=== PATIENT | female | born 1980 | race African-American/Black ===

== ENCOUNTER 2016-08-03 18:06 | Emergency (ER) | payer SELFPAY ==
[~2016-08-03] VITALS: Ht 185.4 cm; Wt 74.8 kg
[~2016-08-03 18:06] MED LIST: CIPROFLOXACIN500 M2 ORAL; IBUPROFEN600 MG ORAL; POLYTRIM OP SOL10 ML OPHTHALM
[2016-08-03] MEDS ORDERED: NKM (18:30)
[2016-08-03] MEDS ORDERED: Metoclopramide 10mg/2ml Inj IVP ONE (18:45)
[2016-08-03] MEDS ORDERED: DiphenhydrAMINE 50mg/ml Inj IVP ONE (18:45)
[2016-08-03 18:57] VITALS: BP 176/100
[2016-08-03 19:09] LABS: BASOPHILS % (AUTO) 1.6 % (0.0-2.0); EOSINOPHILS % (AUTO) 2.5 % (0.0-3.0); LYMPHOCYTES % (AUTO) 36.6 % (20.0-45.0); MEAN CORPUSCULAR HEMOGLOBIN 25.2 PG (27.0-31.0); MEAN CORPUSCULAR HGB CONC 30.8 G/DL (32.0-36.0); MEAN CORPUSCULAR VOLUME 82 FL (80-99); MEAN PLATELET VOLUME 8.6 FL (6.5-10.1); MONOCYTES % (AUTO) 8.8 % (1.0-10.0); NEUTROPHILS % (AUTO) 50.5 % (45.0-75.0); PLATELET COUNT 235 K/UL (150-450); RED BLOOD COUNT 4.28 M/UL (4.20-5.40); WHITE BLOOD COUNT 5.2 K/UL (4.8-10.8)
[2016-08-03 19:10] LABS: APPEARANCE,URINE CLOUDY; KETONES,URINE NEGATIVE (NEGATIVE); LEUKOCYTE ESTERASE ,URINE 2+ (NEGATIVE); NITRITE,URINE POSITIVE (NEGATIVE); PH,URINE 6 (4.5-8.0); PROTEIN,URINE NEGATIVE (NEGATIVE); UROBILINOGEN,URINE NORMAL MG/DL (0.0-1.0)
[2016-08-03 19:18] LABS: RBC,URINE 0-2 /HPF (0 - 2)
[2016-08-03 19:19] LABS: BACTERIA,URINE MANY /HPF; SQUAMOUS EPITHELIAL CELL,UR MODERATE /LPF (NONE/OCC)
[2016-08-03 19:27] LABS: ALANINE AMINOTRANSFERASE 65 U/L (3-33); ALBUMIN/GLOBULIN RATIO 1.5 (1.0-2.7); ANION GAP 14 (5-15); ASPARTATE AMINO TRANSFERASE 85 U/L (5-40); CALCIUM 8.4 mg/dL (8.6-10.2); CARBON DIOXIDE 25 mEQ/L (20-30); CHLORIDE 100 mEQ/L (98-107); CREATININE 0.8 mg/dL (0.5-0.9); GLOMERULAR FILTRATION RATE > 60 mL/min (>60); HEMOLYSIS 5; LIPASE 27 U/L (< 60); POTASSIUM 3.3 mEQ/L (3.4-4.9); SODIUM 139 mEQ/L (135-145); TOTAL PROTEIN 6.5 g/dL (6.6-8.7)
[2016-08-03] MEDS ORDERED: KEFLEX500 MG ORAL (19:43)
[2016-08-03] MEDS ORDERED: IBUPROFEN600 MG ORAL (19:43)
[2016-08-03 19:57] VITALS: BP 152/95
[2016-08-03 19:58] VITALS: BP 152/95
--- NOTE | 2016-08-03 20:34 | Emergency Room Report ---
History of Present Illness General Chief Complaint: Abdominal Pain Source: Patient Present Illness HPI 35-year-old female presents ED complaining of lower abdominal pain times one week. Pain is cramping, 7/10, suprapubic, nonradiating. Patient is also complaining of a headache, localized across forehead, 5/10, throbbing, nonradiating. Denies fevers or chills. Denies flank pain. Notes some nausea and vomiting. No other aggravating or relieving factors. Denies any other associated symptoms Allergies: Coded Allergies: No Known Allergies (Unverified , 06/19/14) Patient History Past Medical History: HTN Past Surgical History: none Pertinent Family History: none Social History: Denies: alcohol use, drug use, smoking Last Menstrual Period: 07/22/16 Now: No Immunizations: UTD Reviewed Nursing Documentation: PMH: Agreed, PSxH: Agreed Nursing Documentation-PMH Hx Hypertension: Yes Review of Systems All Other Systems: negative except mentioned in HPI Physical Exam Vital Signs Date Time Temp Pulse Resp B/P Pulse Ox O2 Delivery O2 Flow Rate FiO2 08/03/16 18:26 97.2 77 14 162/101 99 Room Air Sp02 EP Interpretation: reviewed, normal General Appearance: no apparent distress, alert, GCS 15, non-toxic Head: normocephalic Eyes: bilateral eye PERRL, bilateral eye normal inspection ENT: normal ENT inspection Neck: normal inspection Respiratory: normal inspection Cardiovascular #1: normal inspection Gastrointestinal: normal bowel sounds, soft, non-distended, no guarding, no rebound, tenderness - suprapubic Rectal: deferred Genitourinary: no CVA tenderness Musculoskeletal: normal inspection Neurologic: alert, oriented x3, responsive, motor strength/tone normal, sensory intact, speech normal Psychiatric: normal inspection Skin: normal inspection Lymphatic: normal inspection Medical Decision Making Diagnostic Impression: Primary Impression: Headache Qualified Codes: R51 - Headache Additional Impression: UTI (urinary tract infection) Qualified Codes: N39.0 - Urinary tract infection, site not specified ER Course Hospital Course 35-year-old female presents to ED complaining of headaches, suprapubic pain. Nausea. afebrile Differential diagnoses include: tension headache, migraine, dehydration, intracranial bleed Clinical course Patient placed on stretcher. After initial history and physical I ordered labs , IV fluids, Reglan and Benadryl. Labs reviewed- electrolytes okay, no leukocytosis, hemoglobin/hematocrit stable , ua grossly positive Upon reassessment patient states pain has improved. Patient feels better wishes to go home. i. I feel this is a highly complex case requiring extensive working including EKG/Rhythm strip, Xray/CT/US, Blood/urine lab work, repeat exams while in ED, and administration of strong opiates/narcotics for pain control, admission to hospital or close patient follow up. Diagnosis - headache, UTI stable and discharged to home with Rx Keflex, zofran. f/up with PMD. return to ED if symptoms recur/worsen. Labs Test 08/03/16 18:45 White Blood Count 5.2 K/UL (4.8-10.8) Red Blood Count 4.28 M/UL (4.20-5.40) Hemoglobin 10.8 G/DL (12.0-16.0) Hematocrit 35.0 % (37.0-47.0) Mean Corpuscular Volume 82 FL (80-99) Mean Corpuscular Hemoglobin 25.2 PG (27.0-31.0) Mean Corpuscular Hemoglobin Concent 30.8 G/DL (32.0-36.0) Red Cell Distribution Width 16.0 % (11.6-14.8) Platelet Count 235 K/UL (150-450) Mean Platelet Volume 8.6 FL (6.5-10.1) Neutrophils (%) (Auto) 50.5 % (45.0-75.0) Lymphocytes (%) (Auto) 36.6 % (20.0-45.0) Monocytes (%) (Auto) 8.8 % (1.0-10.0) Eosinophils (%) (Auto) 2.5 % (0.0-3.0) Basophils (%) (Auto) 1.6 % (0.0-2.0) Urine Color Yellow Urine Appearance Cloudy Urine pH 6 (4.5-8.0) Urine Specific [place] 1.010 (1.005-1.035) Urine Protein Negative (NEGATIVE) Urine Glucose (UA) Negative (NEGATIVE) Urine Ketones Negative (NEGATIVE) Urine Occult Blood 1+ (NEGATIVE) Urine Nitrite Positive (NEGATIVE) Urine Bilirubin Negative (NEGATIVE) Urine Urobilinogen Normal MG/DL (0.0-1.0) Urine Leukocyte Esterase 2+ (NEGATIVE) Urine RBC 0-2 /HPF (0 - 2) Urine WBC 2-4 /HPF (0 - 2) Urine Squamous Epithelial Cells Moderate /LPF (NONE/OCC) Urine Bacteria Many /HPF (NONE) Urine HCG, Qualitative Negative Sodium Level 139 mEQ/L (135-145) Potassium Level 3.3 mEQ/L (3.4-4.9) Chloride Level 100 mEQ/L (98-107) Carbon Dioxide Level 25 mEQ/L (20-30) Anion Gap 14 (5-15) Blood Urea Nitrogen 9 mg/dL (7-23) Creatinine 0.8 mg/dL (0.5-0.9) Estimat Glomerular Filtration Rate > 60 mL/min (>60) Glucose Level 72 mg/dL (74-106) Calcium Level 8.4 mg/dL (8.6-10.2) Total Bilirubin 0.3 mg/dL (0.0-1.2) Aspartate Amino Transf (AST/SGOT) 85 U/L (5-40) Alanine Aminotransferase (ALT/SGPT) 65 U/L (3-33) Alkaline Phosphatase 100 U/L (35-104) Total Protein 6.5 g/dL (6.6-8.7) Albumin 3.9 g/dL (3.5-5.2) Globulin 2.6 g/dL Albumin/Globulin Ratio 1.5 (1.0-2.7) Lipase 27 U/L (< 60) Last Vital Signs Date Time Temp Pulse Resp B/P Pulse Ox O2 Delivery O2 Flow Rate FiO2 08/03/16 19:58 98.0 76 16 152/95 100 Room Air Status: improved Disposition: HOME, SELF-CARE Condition: Stable Scripts Cephalexin* (KEFLEX*) 500 Mg Capsule 500 MG ORAL Q6H, #28 CAP 0 Refills Prov: STEWART RODRIGUEZ M.D. 08/03/16 Ibuprofen* (MOTRIN*) 600 Mg Tablet 600 MG ORAL Q8H Y for For Pain, #30 TAB 0 Refills Prov: STEWART RODRIGUEZ M.D. 08/03/16 Patient Instructions: Urinary Tract Infection STEWART RODRIGUEZ M.D. Aug 03, 2016 20:34
[2016-08-07] MEDS ORDERED: IBUPROFEN600 MG ORAL (08:25)
[2016-08-07] MEDS ORDERED: KEFLEX500 MG ORAL (08:25)
== END 2016-08-03 20:12 | disposition home or self-care (01) ==
LOC: EMR 19:00
DX: R51 Headache (principal); N39.0 Urinary tract infection, site not specified; R11.0 Nausea; I10 Essential (primary) hypertension
CPT/HCPCS: 36415; 80053; 81003; 81025; 83690; 85025; 87086; 87181; 96374; 96375; 99284; J1200; J2765; J7040

== ENCOUNTER 2016-08-28 07:41 | Emergency (ER) | payer SELFPAY ==
[~2016-08-28] VITALS: Ht 182.9 cm; Wt 74.8 kg
[~2016-08-28 07:41] MED LIST changes: +KEFLEX500 MG ORAL; +NKM
[2016-08-28] MEDS ORDERED: AMOXICILLIN500 MG ORAL (08:17)
[2016-08-28] MEDS ORDERED: IBUPROFEN600 MG ORAL (08:17)
[2016-08-28 08:23] VITALS: BP 153/89
--- NOTE | 2016-08-28 08:42 | Emergency Room Report ---
History of Present Illness General Chief Complaint: Sore Throat Source: Patient Present Illness HPI 35-year-old female presents ED complaining of sore throat x3 days. States pain with swallowing, 6/10, aching, nonradiating. No other aggravating or relieving factors. Denies cough. Denies fevers or chills. Denies ear ache. Denies sick contacts or recent travel. Denies any other associated symptoms Allergies: Coded Allergies: No Known Allergies (Unverified , 06/19/14) Patient History Past Medical History: HTN Past Surgical History: none Pertinent Family History: none Social History: Denies: alcohol use, drug use, smoking Last Menstrual Period: this month Now: No Immunizations: UTD Reviewed Nursing Documentation: PMH: Agreed, PSxH: Agreed Nursing Documentation-PMH Past Medical History: No History, Except For Hx Hypertension: Yes Review of Systems All Other Systems: negative except mentioned in HPI Physical Exam Vital Signs Date Time Temp Pulse Resp B/P Pulse Ox O2 Delivery O2 Flow Rate FiO2 08/28/16 07:59 97.5 90 20 158/107 98 Room Air Sp02 EP Interpretation: reviewed, normal General Appearance: no apparent distress, alert, GCS 15, non-toxic Head: normocephalic Eyes: bilateral eye PERRL, bilateral eye normal inspection ENT: hearing grossly normal, no angioedema, normal voice, TMs + canals normal, pharyngeal erythema, tonsillar exudate Neck: full range of motion, supple/symm/no masses Respiratory: chest non-tender, lungs clear, normal breath sounds, speaking full sentences Gastrointestinal: normal inspection Rectal: deferred Genitourinary: no CVA tenderness Musculoskeletal: normal inspection Neurologic: alert, oriented x3, responsive, motor strength/tone normal, sensory intact, speech normal Psychiatric: normal inspection Skin: normal inspection Lymphatic: normal inspection Medical Decision Making Diagnostic Impression: Primary Impression: Pharyngitis Qualified Codes: J02.9 - Acute pharyngitis, unspecified ER Course Hospital Course 35-year-old male presents to ED complaining of sore throat Differential diagnoses include: URI, pharyngitis, otitis media Clinical course Patient placed on stretcher. After initial history, physical exam reveals a young male in no acute distress. Bilateral TM unremarkable. There is pharyngeal erythema w/ tonsillar exudates. No lymphadenopathy. Clinical findings consistent with pharyngitis. Reassurance given Diagnosis - pharyngitis Stable and discharged home with prescriptions for Motrin, amoxicillin. Instructed to followup with PMD. return to ED if symptoms recur or worsen Last Vital Signs Date Time Temp Pulse Resp B/P Pulse Ox O2 Delivery O2 Flow Rate FiO2 08/28/16 08:23 62 16 153/89 98 Room Air 08/28/16 08:23 98.2 Status: improved Disposition: HOME, SELF-CARE Condition: Stable Scripts Ibuprofen* (MOTRIN*) 600 Mg Tablet 600 MG ORAL Q8H Y for For Pain, #30 TAB 0 Refills Prov: STEWART RODRIGUEZ M.D. 08/28/16 Amoxicillin* (AMOXIL*) 500 Mg Capsule 500 MG ORAL THREE TIMES A DAY, #21 CAP Prov: STEWART RODRIGUEZ M.D. 08/28/16 Referrals: NOT CHOSEN DENNIS/,REFERRING (PCP) Patient Instructions: Sore Throat, [id number] STEWART RODRIGUEZ M.D. Aug 28, 2016 08:42
== END 2016-08-28 08:22 | disposition home or self-care (01) ==
LOC: EMR 08:15
DX: J02.9 Acute pharyngitis, unspecified (principal); I10 Essential (primary) hypertension
CPT/HCPCS: 99284

== ENCOUNTER 2016-11-12 10:20 | Emergency (ER) | payer MEDICAID ==
[~2016-11-12] VITALS: Ht 185.4 cm; Wt 83.0 kg
[~2016-11-12 10:20] MED LIST changes: +AMOXICILLIN500 MG ORAL
[2016-11-12 10:33] VITALS: BP 156/83
[2016-11-12] MEDS ORDERED: PRENATAL FORMU1 EAC5 PO (10:38)
[2016-11-12] MEDS ORDERED: FERROUS SULFAT325 MG ORAL (10:38)
[2016-11-12 10:41] VITALS: BP 145/81
--- NOTE | 2016-11-12 13:31 | Emergency Room Report ---
History of Present Illness General Chief Complaint: Medication Refill Source: Patient Present Illness HPI Patient 36-year-old female who is approximately 2 months who presented for medication refill. Patient stated that she needed refills of her iron as well as vitamins. Patient denied any nausea or vomiting. She any fever. She denied abdominal pain. The patient had had not had an ultrasound for this . The patient had been referred to [facility].She denies any vaginal bleeding. Allergies: Coded Allergies: No Known Allergies (Unverified , 06/19/14) Patient History Past Medical History: see triage record Reviewed Nursing Documentation: PMH: Agreed, PSxH: Agreed Nursing Documentation-PMH Hx Hypertension: Yes Review of Systems All Other Systems: negative except mentioned in HPI Physical Exam Vital Signs Date Time Temp Pulse Resp B/P Pulse Ox O2 Delivery O2 Flow Rate FiO2 11/12/16 10:23 98.2 88 20 156/83 100 Room Air General Appearance: well appearing, no apparent distress, alert, GCS 15 Head: normocephalic, atraumatic ENT: hearing grossly normal, normal voice Neck: full range of motion, supple Respiratory: no respiratory distress, speaking full sentences Gastrointestinal: normal inspection, normal bowel sounds, non tender, soft Musculoskeletal: no calf tenderness Neurologic: normal gait Psychiatric: mood/affect normal Skin: no rash Medical Decision Making Diagnostic Impression: Primary Impression: Additional Impression: Encounter for medication refill ER Course Patient presented for medication refill. The bedside ultrasound was performed to rule out ectopic . Patient was noted to have a gestational sac within the uterus. There was no free fluid in the pelvis noted. The patient's medications were refilled. She is advised followup with her primary care physician or [facility] for further refills. Last Vital Signs Date Time Temp Pulse Resp B/P Pulse Ox O2 Delivery O2 Flow Rate FiO2 11/12/16 10:41 98.2 75 20 145/81 100 Room Air Status: improved Disposition: HOME, SELF-CARE Condition: Stable Scripts Vit W-Ca,Fe,FA(<1 mg) ( Formula) 1 Each Tablet 1 EACH PO DAILY, #30 TAB Prov: Jack Dallas 11/12/16 Ferrous Sulfate* (FERROUS SULFATE*) 325 Mg Tablet 325 MG ORAL DAILY, #30 TAB 0 Refills Prov: Jack Dallas 11/12/16 Referrals: NON PHYSICIAN (PCP) Patient Instructions: Medicine Refill at the Emergency Department Jack Dallas November 12, 2016 13:31
== END 2016-11-12 10:45 | disposition home or self-care (01) ==
LOC: EMR 10:28
DX: Z76.0 Encounter for issue of repeat prescription (principal); Z34.91 Encounter for supervision of normal pregnancy, unspecified, first trimester
CPT/HCPCS: 99284

== ENCOUNTER 2017-05-04 20:19 | Emergency (ER) | payer MEDICAID, OTHER ==
[~2017-05-04] VITALS: Ht 185.4 cm; Wt 90.7 kg
[~2017-05-04 20:19] MED LIST changes: +FERROUS SULFAT325 MG ORAL; +PRENATAL FORMU1 EAC5 PO
[2017-05-04] MEDS ORDERED: ALBUTEROL SULF8.5 GM INH (21:18)
[2017-05-04] MEDS ORDERED: ZITHROMAX250 MG ORAL (21:18)
--- NOTE | 2017-05-04 21:18 | Emergency Room Report ---
History of Present Illness General Chief Complaint: Flu Like Symptoms Source: Patient Present Illness HPI Is a 36-year-old female who presents with chief complaint of flulike illness for a week and half. No fever. Has cough productive of phlegm. Also with sore throat and congestion. No urinary complaint. No nausea or vomiting. Allergies: Coded Allergies: No Known Allergies (Unverified , 06/19/14) Patient History Past Medical History: see triage record, old chart reviewed Past Surgical History: other Pertinent Family History: none Social History: Denies: smoking Last Menstrual Period: unk Now: Yes Immunizations: other Reviewed Nursing Documentation: PMH: Agreed, PSxH: Agreed Nursing Documentation-PMH Hx Hypertension: Yes Review of Systems Eye: Denies: eye pain, blurred vision ENT: Reports: nose congestion, Denies: ear pain, throat swelling Respiratory: Reports: cough, Denies: shortness of breath Cardiovascular: Denies: chest pain, palpitations Gastrointestinal: Denies: abdominal pain, diarrhea, nausea, vomiting Musculoskeletal: Denies: back pain, joint pain Skin: Denies: rash Neurological: Denies: headache, numbness Endocrine: Denies: increased thirst, increased urine Hematologic/Lymphatic: Denies: easy bruising All Other Systems: negative except mentioned in HPI Physical Exam Vital Signs Date Time Temp Pulse Resp B/P (MAP) Pulse Ox O2 Delivery O2 Flow Rate FiO2 05/04/17 20:40 98.2 90 22 156/93 99 Room Air vitals with high blood pressure Sp02 EP Interpretation: reviewed, normal General Appearance: well appearing, no apparent distress, alert Head: normocephalic, atraumatic Eyes: bilateral eye PERRL, bilateral eye EOMI ENT: hearing grossly normal, normal pharynx Neck: full range of motion, supple, no meningismus Respiratory: chest non-tender, lungs clear, normal breath sounds, other - Coughing with inspiration Cardiovascular #1: regular rate, rhythm, no murmur Gastrointestinal: normal bowel sounds, non tender, no mass, no organomegaly, no bruit, non-distended Musculoskeletal: back normal, gait/station normal, normal range of motion Psychiatric: mood/affect normal Skin: warm/dry Medical Decision Making Diagnostic Impression: Primary Impression: Upper respiratory infection, acute ER Course Patient with upper respiratory infection. Most likely viral but it has been ongoing for a week and half now, so I will put her on antibiotics. No evidence of sepsis, meningitis, or other serious bacterial infection. Last Vital Signs Date Time Temp Pulse Resp B/P (MAP) Pulse Ox O2 Delivery O2 Flow Rate FiO2 05/04/17 20:53 90 22 Room Air 05/04/17 20:40 98.2 156/93 99 Status: unchanged Disposition: HOME, SELF-CARE Condition: Stable Scripts Albuterol Sulfate* (ALBUTEROL SULFATE MDI*) 8.5 Gm Hfa.aer.ad 2 PUFF INH Q4H Y for cough/wheezing, #1 EA 0 Refills Prov: UMBERTO LAUGHLIN M.D. 05/04/17 Azithromycin* (ZITHROMAX*) 250 Mg Tablet 250 MG ORAL DAILY, #6 TAB 0 Refills Take two tables once daily for 1 day, then one tablet once daily for 4 days. Prov: UMBERTO LAUGHLIN M.D. 05/04/17 Additional Instructions: Followup with your Dr. in 7 days. Return if symptom worsen. UMBERTO LAUGHLIN M.D. May 04, 2017 21:18
[2017-05-04 21:30] VITALS: BP 156/93
[2017-05-05] MEDS ORDERED: PHENERGAN6.25 MG/5 ORAL (19:51)
[2017-05-05] MEDS ORDERED: LORATADINE10 M2 PO (19:51)
[2017-05-05] MEDS ORDERED: FLONASE ALLERG9.9 ML NS (19:51)
[2017-05-05] MEDS ORDERED: TESSALON PERLE100 MG ORAL (19:51)
== END 2017-05-04 22:05 | disposition home or self-care (01) ==
LOC: EMR 21:11
DX: J06.9 Acute upper respiratory infection, unspecified (principal); I10 Essential (primary) hypertension
CPT/HCPCS: 99284

== ENCOUNTER 2017-05-05 19:19 | Emergency (ER) | payer MEDICAID ==
[~2017-05-05] VITALS: Ht 185.4 cm; Wt 93.0 kg
[~2017-05-05 19:19] MED LIST changes: +ALBUTEROL SULF8.5 GM INH; +ZITHROMAX250 MG ORAL
[2017-05-05 19:30] VITALS: BP 158/86
[2017-05-05] MEDS ORDERED: PHENERGAN6.25 MG/5 ORAL (19:51)
[2017-05-05] MEDS ORDERED: LORATADINE10 M2 PO (19:51)
[2017-05-05] MEDS ORDERED: FLONASE ALLERG9.9 ML NS (19:51)
[2017-05-05] MEDS ORDERED: TESSALON PERLE100 MG ORAL (19:51)
--- NOTE | 2017-05-05 19:51 | Emergency Room Report ---
History of Present Illness General Chief Complaint: Flu Like Symptoms Source: Patient Present Illness HPI 36 y/o female c/o URI sxs x 2 days. Assoc sxs include nasal congestion, rhinorrhea, chest congestion, post nasal drip, body aches, chills, and cough due to tickle in the throat. States they have not taken anything for their sxs. Patient was here yesterday and was given albuterol and azithromycin and has not taken medication and is requesting cough syrup. Denies any current n/v/f/c/d, abd pain, back pain, neck pain, sore throat, photophobia, phonophobia, CP, SOB or headache. Allergies: Coded Allergies: No Known Allergies (Unverified , 06/19/14) Patient History Past Medical History: see triage record Past Surgical History: none Pertinent Family History: none Now: Yes - 8 months Immunizations: UTD Reviewed Nursing Documentation: PMH: Agreed, PSxH: Agreed Nursing Documentation-PMH Past Medical History: No History, Except For Hx Hypertension: Yes Review of Systems All Other Systems: negative except mentioned in HPI Physical Exam Vital Signs Date Time Temp Pulse Resp B/P (MAP) Pulse Ox O2 Delivery O2 Flow Rate FiO2 05/05/17 19:23 97.9 80 16 158/86 100 Room Air Sp02 EP Interpretation: reviewed, normal General Appearance: no apparent distress, alert, GCS 15, non-toxic Head: normocephalic, atraumatic Eyes: bilateral eye normal inspection, bilateral eye PERRL ENT: hearing grossly normal, normal pharynx, no angioedema, normal voice, TMs + canals normal, nasal congestion Neck: full range of motion, supple/symm/no masses Respiratory: chest non-tender, lungs clear, normal breath sounds, speaking full sentences Cardiovascular #1: regular rate, rhythm, no edema Musculoskeletal: digits/nails normal, gait/station normal Neurologic: alert, oriented x3, responsive, motor strength/tone normal, sensory intact, speech normal Psychiatric: judgement/insight normal, memory normal, mood/affect normal, no suicidal/homicidal ideation Skin: normal color, no rash, warm/dry, well hydrated Medical Decision Making PA Attestation Dr. Rutledge is my supervising physician with whom patient management has been discussed with. Diagnostic Impression: Primary Impression: URI with cough and congestion ER Course Pt. presents to the ED c/o of cough and congestion Ddx considered but are not limited to bronchitis, pneumonia, viral upper respiratory tract infection Vital signs: are WNL, pt. is afebrile H&PE are most consistent with viral upper respiratory tract infection ORDERS: none required at this time, the diagnosis is clinical ED INTERVENTIONS: None required at this time. DISCHARGE: At this time pt. is stable for d/c to home. Will provide printed patient care instructions, and any necessary prescriptions. Care plan and follow up instructions have been discussed with the patient prior to discharge. Last Vital Signs Date Time Temp Pulse Resp B/P (MAP) Pulse Ox O2 Delivery O2 Flow Rate FiO2 05/05/17 19:30 80 16 Room Air 05/05/17 19:30 97.9 158/86 100 Status: unchanged Disposition: HOME, SELF-CARE Condition: Stable Scripts Benzonatate* (TESSALON PERLE*) 100 Mg Capsule 100 MG ORAL THREE TIMES A DAY for 7 Days, #21 PERLE Prov: VINCENT GRIFFITHM P.A. 05/05/17 Promethazine/Dextromethorphan (Promethazine-Dm Syrup) 473 Ml Syrup 1 TSP ORAL Q6H Y for For Cough, #118 ML 0 Refills Prov: SABVINCENT BARTLETTM P.A. 05/05/17 Loratadine (LORATADINE) 10 Mg Tablet 10 MG PO DAILY for 14 Days, #14 TAB Prov: SABRY,TAMEEM P.A. 05/05/17 Fluticasone Propionate (Flonase Allergy Relief) 9.9 Ml [place].susp 2 SPRAYS NS DAILY for 7 Days, #10 ML Prov: SABRY,TAMEEM P.A. 05/05/17 Patient Instructions: Upper Respiratory Infection, Adult Additional Instructions: Take medication as directed. Drink plenty of fluids which include Gatorade and water. Get plenty of rest. Avoid taking medications on an empty stomach. If you have cough avoid dairy and cold beverages. If you have a fever, headache or body aches please take [id number] tylenol/motrin/advil unless a prescription for these symptoms have been given. If your symptoms are worsening or you have shortness or breath, severe headaches or chest pain, please call 911 or go to the ER. ANDRE GRIFFITH May 05, 2017 19:51
[2017-05-05 19:57] VITALS: BP 158/86
== END 2017-05-05 19:57 | disposition home or self-care (01) ==
LOC: EMR 19:40
DX: J06.9 Acute upper respiratory infection, unspecified (principal); I10 Essential (primary) hypertension
CPT/HCPCS: 99284

== ENCOUNTER 2020-03-04 16:23 | Emergency (ER) | payer MEDICAID, OTHER ==
[~2020-03-04] VITALS: Ht 185.4 cm; Wt 87.5 kg
[~2020-03-04 16:23] MED LIST changes: +FLONASE ALLERG9.9 ML NS; +LORATADINE10 M2 PO; +PHENERGAN6.25 MG/5 ORAL; +TESSALON PERLE100 MG ORAL
[2020-03-04 17:16] LABS: BASOPHILS % (AUTO) 0.8 % (0.0-2.0); EOSINOPHILS % (AUTO) 0.8 % (0.0-3.0); HEMATOCRIT 33.7 % (37.0-47.0); HEMOGLOBIN 9.8 G/DL (12.0-16.0); MEAN CORPUSCULAR VOLUME 69 FL (80-99); MONOCYTES % (AUTO) 7.8 % (1.0-10.0); NEUTROPHILS % (AUTO) 73.7 % (45.0-75.0); PLATELET COUNT 307 K/UL (150-450); RED BLOOD COUNT 4.91 M/UL (4.20-5.40); RED CELL DISTRIBUTION WIDTH 18.9 % (11.6-14.8); WHITE BLOOD COUNT 6.7 K/UL (4.8-10.8)
--- NOTE | 2020-03-04 17:19 | Emergency Room Report ---
History of Present Illness General Chief Complaint: Abdominal Pain Source: Patient Present Illness HPI 39 YO female presents to the ED c/o 03/04 in severity nausea and vomiting x 2 days. Pt .reports dizziness that she describes as feeling as though she is going to faint when standing up. Pt. only PmHx. is HTN for which she developed during and did not completely resolve. Pt. reports she is not prescribed any medication for Bp control. She reports first episode of vomiting today. She denies blood in the vomitus. She denies constipation, diarrhea, blood in the stool or black stools. Allergies: Coded Allergies: No Known Allergies (Unverified , 06/19/14) COVID-19 Screening Contact w/high risk pt: No Experienced COVID-19 symptoms?: No COVID-19 Testing performed [employer]: Yes - 2 weeks ago COVID-19 Screening: Negative COVID-19 COVID-19 Testing Source: nasal Patient History Past Medical History: see triage record Past Surgical History: none Pertinent Family History: none Now: No Reviewed Nursing Documentation: PMH: Agreed; PSxH: Agreed Nursing Documentation-PMH Past Medical History: No History, Except For Hx Hypertension: Yes Review of Systems All Other Systems: negative except mentioned in HPI Physical Exam Vital Signs Date Time Temp Pulse Resp B/P (MAP) Pulse Ox O2 Delivery O2 Flow Rate FiO2 03/04/20 16:33 98.4 70 20 172/110 (130) 99 Room Air Sp02 EP Interpretation: reviewed, normal General Appearance: no apparent distress, alert, GCS 15, non-toxic Head: normocephalic, atraumatic Eyes: bilateral eye normal inspection, bilateral eye PERRL, bilateral eye other - no photophobia ENT: hearing grossly normal, normal voice Neck: full range of motion Respiratory: lungs clear, normal breath sounds, speaking full sentences Cardiovascular #1: regular rate, rhythm Gastrointestinal: normal bowel sounds, non tender, soft, non-distended, no guarding Genitourinary: no CVA tenderness Musculoskeletal: normal range of motion, gait/station normal, non-tender Neurologic: alert, motor strength/tone normal, oriented x3, sensory intact, responsive, speech normal Psychiatric: judgement/insight normal Skin: no rash, normal color Medical Decision Making PA Attestation Dr. Monahan is my supervising Physician whom patient management has been discussed with. Diagnostic Impression: Primary Impression: UTI (urinary tract infection) Qualified Codes: N30.01 - Acute cystitis with hematuria ER Course 39 YO female presents to the ED c/o 03/04 in severity nausea and vomiting x 2 days. Pt .reports dizziness that she describes as feeling as though she is going to faint when standing up. Pt. only PmHx. is HTN for which she developed during and did not completely resolve. Pt. reports she is not prescribed any medication for Bp control. She reports first episode of vomiting today. She denies blood in the vomitus. She denies constipation, diarrhea, blood in the stool or black stools. Ddx considered but are not limited to Diverticulitis, acute appy, diarrhea,UC, PUD, GE, pancreatitis, gallstone, ovarian torsion, ectopic , PID tubo-ovarian abscess. Vital signs: are WNL, pt. is afebrile H&PE are most consistent with non-toxic in appearance, NAD. No evidence of acute abdomen on exam. ORDERS: -CBC, CMP, LIPASE: WNL -UA: Nitrite Positive, moderate bacteria, cloudy appearance, and increased inflammatory markers. -URINE HCG: Negative OrthoStatic VS: 190 systolic dropped to 158 upon standing. Hr from 60 to 76. ED INTERVENTIONS: - 1 Liter NS - Zofran 4mg IV -1g Rocephin IV DISCHARGE: At this time pt. is stable for d/c to home. Will provide printed patient care instructions, and any necessary prescriptions. Care plan and follow up instructions have been discussed with the patient prior to discharge. Labs Test 03/04/20 17:00 White Blood Count 6.7 K/UL (4.8-10.8) Red Blood Count 4.91 M/UL (4.20-5.40) Hemoglobin 9.8 G/DL (12.0-16.0) Hematocrit 33.7 % (37.0-47.0) Mean Corpuscular Volume 69 FL (80-99) Mean Corpuscular Hemoglobin 19.9 PG (27.0-31.0) Mean Corpuscular Hemoglobin Concent 29.0 G/DL (32.0-36.0) Red Cell Distribution Width 18.9 % (11.6-14.8) Platelet Count 307 K/UL (150-450) Mean Platelet Volume 7.1 FL (6.5-10.1) Neutrophils (%) (Auto) 73.7 % (45.0-75.0) Lymphocytes (%) (Auto) 17.0 % (20.0-45.0) Monocytes (%) (Auto) 7.8 % (1.0-10.0) Eosinophils (%) (Auto) 0.8 % (0.0-3.0) Basophils (%) (Auto) 0.8 % (0.0-2.0) Urine Color Pale yellow Urine Appearance Very cloudy Urine pH 8 (4.5-8.0) Urine Specific [place] 1.010 (1.005-1.035) Urine Protein 1+ (NEGATIVE) Urine Glucose (UA) Negative (NEGATIVE) Urine Ketones Negative (NEGATIVE) Urine Blood 1+ (NEGATIVE) Urine Nitrite Positive (NEGATIVE) Urine Bilirubin Negative (NEGATIVE) Urine Urobilinogen Normal MG/DL (0.0-1.0) Urine Leukocyte Esterase 3+ (NEGATIVE) Urine RBC 5-10 /HPF (0 - 2) Urine WBC 60-80 /HPF (0 - 2) Urine Squamous Epithelial Cells Many /LPF (NONE/OCC) Urine Bacteria Many /HPF (NONE) Urine HCG, Qualitative Negative (NEGATIVE) Sodium Level 137 MMOL/L (136-145) Potassium Level 3.7 MMOL/L (3.5-5.1) Chloride Level 104 MMOL/L (98-107) Carbon Dioxide Level 29 MMOL/L (21-32) Anion Gap 4 mmol/L (5-15) Blood Urea Nitrogen 9 mg/dL (7-18) Creatinine 0.7 MG/DL (0.55-1.30) Estimat Glomerular Filtration Rate > 60 mL/min (>60) Glucose Level 100 MG/DL (74-106) Calcium Level 8.8 MG/DL (8.5-10.1) Total Bilirubin 0.4 MG/DL (0.2-1.0) Aspartate Amino Transf (AST/SGOT) 24 U/L (15-37) Alanine Aminotransferase (ALT/SGPT) 35 U/L (12-78) Alkaline Phosphatase 95 U/L (46-116) Total Protein 8.1 G/DL (6.4-8.2) Albumin 3.8 G/DL (3.4-5.0) Globulin 4.3 g/dL Albumin/Globulin Ratio 0.9 (1.0-2.7) Lipase 104 U/L (73-393) EKG Diagnostic Results Rate: normal - 67 Rhythm: NSR ST Segments: no acute changes ASA given to the pt in ED: No PA Scribe Text This Interpretation was scribed by DANIEL Haskins. Last Vital Signs Date Time Temp Pulse Resp B/P (MAP) Pulse Ox O2 Delivery O2 Flow Rate FiO2 03/04/20 16:33 98.4 70 20 172/110 (130) 99 Room Air Disposition: HOME, SELF-CARE Condition: Stable Scripts Acetaminophen* (TYLENOL EXTRA STRENGTH*) 500 Mg Tablet 500 MG ORAL Q6H, #20 TAB 0 Refills Prov: Viktoriya Haskins 03/04/20 Cephalexin* (KEFLEX*) 500 Mg Capsule 500 MG ORAL EVERY 12 HOURS, #14 CAP 0 Refills Prov: Viktoriya Haskins 03/04/20 Referrals: NON PHYSICIAN (PCP) Patient Instructions: Urinary Tract Infection, [id number] Additional Instructions: Take medications as directed. ED FOllow up in 48 hours, or Follow up with a Primary Care Provider in 3-5 days, even if your symptoms have resolved. --Please review list of primary care clinics, if you do not already have a primary care provider Return sooner to ED if new symptoms occur, or current symptoms become worse. - Please note that this Emergency Department Report was dictated using [employer]ktd[employer] technology software, occasionally this can lead to erroneous entry secondary to interpretation by the dictation equipment. Viktoriya Haskins Mar 04, 2020 17:19
[2020-03-04 17:23] LABS: ANION GAP 4 mmol/L (5-15); APPEARANCE,URINE VERY CLOUDY; BILIRUBIN, URINE NEGATIVE (NEGATIVE); BLOOD UREA NITROGEN 9 mg/dL (7-18); CALCIUM 8.8 MG/DL (8.5-10.1); CARBON DIOXIDE 29 MMOL/L (21-32); CHLORIDE 104 MMOL/L (98-107); COLOR,URINE PALE YELLOW; CREATININE 0.7 MG/DL (0.55-1.30); GLUCOSE, URINE (UA) NEGATIVE (NEGATIVE); KETONES,URINE NEGATIVE (NEGATIVE); LEUKOCYTE ESTERASE ,URINE 3+ (NEGATIVE); NITRITE,URINE POSITIVE (NEGATIVE); PH,URINE 8 (4.5-8.0); POTASSIUM 3.7 MMOL/L (3.5-5.1); PROTEIN,URINE 1+ (NEGATIVE); SODIUM 137 MMOL/L (136-145); UROBILINOGEN,URINE NORMAL MG/DL (0.0-1.0)
[2020-03-04 17:29] LABS: ALANINE AMINOTRANSFERASE 35 U/L (12-78); ALBUMIN 3.8 G/DL (3.4-5.0); ALBUMIN/GLOBULIN RATIO 0.9 (1.0-2.7); ALKALINE PHOSPHATASE 95 U/L (46-116); ASPARTATE AMINO TRANSFERASE 24 U/L (15-37); BILIRUBIN,TOTAL 0.4 MG/DL (0.2-1.0)
[2020-03-04 17:40] VITALS: BP 171/98
[2020-03-04 17:45] VITALS: BP 190/99
[2020-03-04 17:50] VITALS: BP 158/112
[2020-03-04] MEDS ORDERED: cefTRIAXone 1 GM in NS 55 ML IVPB ONE (18:00)
[2020-03-04] MEDS ORDERED: TYLENOL EXTRA500 MG ORAL (18:35)
[2020-03-04] MEDS ORDERED: CEPHALEXIN500 MG ORAL (18:35)
[2020-03-04 19:10] VITALS: BP 144/99
== END 2020-03-04 19:10 | disposition home or self-care (01) ==
LOC: EMR 17:00
DX: N30.01 Acute cystitis with hematuria (principal); I10 Essential (primary) hypertension
CPT/HCPCS: 36415; 80053; 81003; 81025; 83690; 85025; 87086; 93005; 96361; 96365; J0696; J7030; Z7502; 99284